=== PATIENT | female | born 1990 | race Caucasian/White ===

== ENCOUNTER 2017-01-04 03:04 | Emergency (ER) | payer OTHER ==
[~2017-01-04] VITALS: Ht 165.1 cm; Wt 59.3 kg
[~2017-01-04 03:04] MED LIST: ACYCLOVIR400 MG PO; AUGMENTIN500 MG PO; Acyclovir PO; CIPRO500 MG PO; Colace PO; DEPO-PROVER150 MG/ML IM; FERROUS SULFAT325 MG PO; FLEXERIL10 MG PO; Feosol PO; HYDROCODON-ACE1 EAC7 PO; INDOCIN25 MG PO; KEFLEX500 MG PO; MACROBID100 MG PO; Macrobid PO; Motrin PO; NAPROSYN500 MG PO; NAPROXEN500 MG PO; NEXIUM40 MG PO; NOHOMEMEDS; NORCO 5/3251 TABLET PO; PERCOCET 5/31 TABLET PO; TAMIFLU75 MG PO; TORADOL10 MG PO; TYLENOL COLD PO; Tamiflu PO; Vicodin,Norco 5/325 PO; ZANTAC150 MG PO; ZOFRAN4 MG PO; Zofran PO; [UNRECOGNIZED DRUG - OTHER] PO; [UNRECOGNIZED DRUG - OTHER] PO
[2017-01-04 04:42] LABS: BASOPHIL COUNT 0.1 K/uL (0-0.1); EOSINOPHIL (%) 1.7 % (0-5); EOSINOPHIL COUNT 0.2 K/uL (0-0.3); HEMATOCRIT 37.9 % (36.0-46.0); IMMATURE GRANULOCYTE (%) 0.4 % (0.0-0.7); INSTRUMENT ABS NEUTROPHIL CT 6.4 K/uL; LYMPHOCYTE COUNT 2.4 K/uL (1.0-2.8); MCH 31.9 PG (29.0-34.0); MCV 93.6 FL (83-99); MEAN PLAT.VOLUME 9.7 uM^3 (9.5-12.4); MONOCYTE (%) 10.1 % (3-12); NEUTROPHIL (%) 63.4 % (45-76); NEUTROPHIL COUNT 6.4 K/uL (1.8-6.4); PLATELET COUNT 227 K/uL (156-360); RBC DIS.WIDTH-CV 11.9 % (11.8-14.6); RBC DIS.WIDTH-SD 41.5 % (39-53); RED BLOOD COUNT 4.05 M/uL (3.80-5.20)
[2017-01-04 04:51] LABS: CHLORIDE 104 mEq/L (99-109); POTASSIUM 3.3 mEq/L (3.7-5.4)
[2017-01-04 04:52] LABS: SODIUM 139 mEq/L (136-147)
[2017-01-04 04:54] LABS: GLUCOSE 86 mg/dL (70-99)
[2017-01-04 04:55] LABS: ANION GAP 9 MEQ/L (2-14)
[2017-01-04 04:56] LABS: TOTAL BILIRUBIN 0.5 mg/dL (0.0-1.0)
[2017-01-04 04:57] LABS: ALKALINE PHOSPHATASE 81 IU/L (3-129); GFR ESTIMATE (CALCULATED) > 59 mL/min/
[2017-01-04 04:59] LABS: UREA NITROGEN (BUN) 7 mg/dL (9-23)
[2017-01-04 05:03] LABS: INTERNAL CONTROL VALID? YES; MONOSPOT (MONONUCLEOSIS SEROL) NEGATIVE (NEGATIVE)
[2017-01-04 05:04] LABS: ADD MIUA? YES; BILIRUBIN NEGATIVE; BLOOD SMALL; COLOR YELLOW ((YELLOW)); GLUCOSE (STRIP) NEGATIVE; KETONES NEGATIVE; LEUKOCYTES LARGE; NITRITE NEGATIVE; PROTEIN (STRIP) 100; SPECIFIC GRAVITY 1.019 (1.000-1.030)
[2017-01-04 05:06] LABS: QUANTITATIVE HCG < 4.0 MIU/ML
[2017-01-04 05:36] LABS: BACTERIA NONE SEEN /HPF; EPITHELIAL CELLS 1+ /HPF; MUCUS TRACE /LPF; RED BLOOD CELLS 20-30 /HPF (0-5); UCUL ADDED? YES; WHITE BLOOD CELLS TNTC /HPF (0-5)
[2017-01-04] MEDS ORDERED: KEFLEX500 MG PO (05:53)
[2017-01-04 06:14] VITALS: BP 99/69
[2017-01-05 12:21] LABS: NEISSERIA GONORRHOEAE POSITIVE
[2017-01-08 11:42] LABS: CHLAMYDIA TRACHOMATIS INVALID
== END 2017-01-04 06:17 | disposition home or self-care (01) ==
LOC: EME 03:04
PROVIDERS: Emergency Medicine
DX: N39.0 Urinary tract infection, site not specified (principal); J02.9 Acute pharyngitis, unspecified; E87.6 Hypokalemia; R51 Headache; H57.10 Ocular pain, unspecified eye; N93.9 Abnormal uterine and vaginal bleeding, unspecified; F17.200 Nicotine dependence, unspecified, uncomplicated
CPT/HCPCS: 80053; 81003; 84702; 85025; 86308; 87077; 87086; 87186; 87491; 87591; 87651 90; 99281; 99283

== ENCOUNTER 2017-01-24 07:14 | Emergency (ER) | payer OTHER ==
[~2017-01-24] VITALS: Ht 165.1 cm; Wt 57.9 kg
[2017-01-24 07:47] LABS: HEMATOCRIT 38.6 % (36.0-46.0); MCH 31.5 PG (29.0-34.0); MCHC 34.5 G/DL (30.0-36.0); MCV 91.5 FL (83-99); MEAN PLAT.VOLUME 9.7 uM^3 (9.5-12.4); PLATELET COUNT 234 K/uL (156-360); RBC DIS.WIDTH-CV 11.7 % (11.8-14.6); RBC DIS.WIDTH-SD 39.3 % (39-53); RED BLOOD COUNT 4.22 M/uL (3.80-5.20)
[2017-01-24 07:55] LABS: CHLORIDE 105 mEq/L (99-109); POTASSIUM 3.2 mEq/L (3.7-5.4); SODIUM 138 mEq/L (136-147)
[2017-01-24 07:57] LABS: GLUCOSE 100 mg/dL (70-99)
[2017-01-24 07:58] LABS: ANION GAP 7 MEQ/L (2-14)
[2017-01-24 08:01] LABS: GFR ESTIMATE (CALCULATED) > 59 mL/min/; UREA NITROGEN (BUN) 5 mg/dL (9-23)
[2017-01-24 08:05] LABS: ADD MIUA? YES; BILIRUBIN NEGATIVE; BLOOD NEGATIVE; COLOR STRAW ((YELLOW)); GLUCOSE (STRIP) NEGATIVE; KETONES NEGATIVE; LEUKOCYTES NEGATIVE; NITRITE NEGATIVE; PROTEIN (STRIP) NEGATIVE; SPECIFIC GRAVITY 1.004 (1.000-1.030); UROBILINOGEN 0.2 MG/DL (0.2-1.0)
[2017-01-24 08:07] LABS: TROP-I INTERPRETATION NEGATIVE; TROPONIN-I < 0.01 ng/mL (0.0-0.30)
[2017-01-24 08:08] LABS: BACTERIA RARE /HPF; EPITHELIAL CELLS 2+ /HPF; MUCUS TRACE /LPF; RED BLOOD CELLS 0-5 /HPF (0-5); WHITE BLOOD CELLS 0-5 /HPF (0-5)
[2017-01-24 08:31] LABS: QUANTITATIVE HCG < 4.0 MIU/ML
[2017-01-24] MEDS ORDERED: ATARAX,VISTARIL50 MG PO (08:31)
[2017-01-24 08:48] VITALS: BP 131/92
== END 2017-01-24 08:50 | disposition home or self-care (01) ==
LOC: EME 07:14
PROVIDERS: Nurse Practitioner Family
DX: F41.9 Anxiety disorder, unspecified (principal); F17.200 Nicotine dependence, unspecified, uncomplicated
CPT/HCPCS: 80048; 81003; 84484; 84702; 85027; 93005; 99281; 99284; Q0177

== ENCOUNTER 2017-02-12 10:12 | Emergency (ER) | payer OTHER ==
[~2017-02-12] VITALS: Ht 165.1 cm; Wt 58.0 kg
[~2017-02-12 10:12] MED LIST changes: +ATARAX,VISTARIL50 MG PO
[2017-02-12 13:02] LABS: HEMATOCRIT 37.6 % (36.0-46.0); MCH 31.8 PG (29.0-34.0); MCV 93.3 FL (83-99); MEAN PLAT.VOLUME 9.7 uM^3 (9.5-12.4); PLATELET COUNT 214 K/uL (156-360); RBC DIS.WIDTH-CV 12.3 % (11.8-14.6); RBC DIS.WIDTH-SD 42.3 % (39-53); RED BLOOD COUNT 4.03 M/uL (3.80-5.20)
[2017-02-12 13:04] LABS: CHLORIDE 106 mEq/L (99-109); POTASSIUM 3.8 mEq/L (3.7-5.4); SODIUM 139 mEq/L (136-147)
[2017-02-12 13:07] LABS: GLUCOSE 78 mg/dL (70-99)
[2017-02-12 13:08] LABS: ANION GAP 7 MEQ/L (2-14); D-DIMER ELISA < 0.15 mg/L FEU (< 0.57)
[2017-02-12 13:09] LABS: TOTAL BILIRUBIN 0.5 mg/dL (0.0-1.0)
[2017-02-12 13:10] LABS: ALKALINE PHOSPHATASE 73 IU/L (3-129); GFR ESTIMATE (CALCULATED) > 59 mL/min/
[2017-02-12 13:11] LABS: UREA NITROGEN (BUN) 8 mg/dL (9-23)
[2017-02-12 13:21] LABS: QUANTITATIVE HCG < 4.0 MIU/ML
[2017-02-12] MEDS ORDERED: KEPPRA500 MG PO (15:25)
[2017-02-12 16:46] VITALS: BP 90/71
== END 2017-02-12 16:47 | disposition home or self-care (01) ==
LOC: EME 10:12
PROVIDERS: Emergency Medicine
DX: G40.909 Epilepsy, unspecified, not intractable, without status epilepticus (principal); F17.200 Nicotine dependence, unspecified, uncomplicated
CPT/HCPCS: 70450; 80053; 84702; 85027; 85379; 93005; 95819; 99281; 99285; J7030

== ENCOUNTER 2017-05-06 15:08 | Emergency (ER) | payer OTHER ==
[~2017-05-06] VITALS: Ht 165.1 cm; Wt 56.1 kg
[~2017-05-06 15:08] MED LIST changes: +KEPPRA500 MG PO
[2017-05-06 16:23] LABS: MCH 31.7 PG (29.0-34.0); MCHC 34.4 G/DL (30.0-36.0); MCV 92.2 FL (83-99); MEAN PLAT.VOLUME 9.8 uM^3 (9.5-12.4); PLATELET COUNT 214 K/uL (156-360); RBC DIS.WIDTH-CV 11.9 % (11.8-14.6); RBC DIS.WIDTH-SD 40.4 % (39-53); RED BLOOD COUNT 4.23 M/uL (3.80-5.20); WHITE BLOOD COUNT 8.5 K/uL (4.1-10.2)
[2017-05-06 16:31] LABS: CHLORIDE 107 mEq/L (99-109); POTASSIUM 3.7 mEq/L (3.7-5.4); SODIUM 136 mEq/L (136-147)
[2017-05-06 16:32] LABS: GLUCOSE 75 mg/dL (70-99)
[2017-05-06 16:34] LABS: ANION GAP 7 MEQ/L (2-14)
[2017-05-06 16:36] LABS: GFR ESTIMATE (CALCULATED) > 59 mL/min/
[2017-05-06 16:37] LABS: UREA NITROGEN (BUN) 9 mg/dL (9-23)
[2017-05-06 16:44] LABS: QUANTITATIVE HCG 67.9 MIU/ML
[2017-05-06 17:00] LABS: ADD MIUA? NO; BILIRUBIN NEGATIVE; BLOOD NEGATIVE; COLOR YELLOW ((YELLOW)); GLUCOSE (STRIP) NEGATIVE; KETONES NEGATIVE; LEUKOCYTES NEGATIVE; NITRITE NEGATIVE; PROTEIN (STRIP) NEGATIVE; SPECIFIC GRAVITY 1.014 (1.000-1.030)
[2017-05-06 19:50] VITALS: BP 106/68
[2017-05-07 13:46] LABS: CHLAMYDIA TRACHOMATIS NEGATIVE; NEISSERIA GONORRHOEAE NEGATIVE
== END 2017-05-06 19:50 | disposition home or self-care (01) ==
LOC: EME 15:08
PROVIDERS: Nurse Practitioner Family
DX: O20.9 Hemorrhage in early pregnancy, unspecified (principal); O36.0910 Maternal care for other rhesus isoimmunization, first trimester, not applicable or unspecified; Z11.3 Encounter for screening for infections with a predominantly sexual mode of transmission; O99.331 Smoking (tobacco) complicating pregnancy, first trimester; F17.200 Nicotine dependence, unspecified, uncomplicated
CPT/HCPCS: 76801; 80048; 81003; 84702; 85027; 86850; 86900; 86901; 87491; 87591; 99281; 99283; J2790

== ENCOUNTER 2017-05-22 22:53 | Emergency (ER) | payer OTHER ==
[~2017-05-22] VITALS: Ht 165.1 cm; Wt 57.7 kg
[2017-05-23 00:13] LABS: HEMATOCRIT 35.4 % (36.0-46.0); MCH 31.9 PG (29.0-34.0); MCHC 34.7 G/DL (30.0-36.0); MCV 91.7 FL (83-99); MEAN PLAT.VOLUME 9.6 uM^3 (9.5-12.4); PLATELET COUNT 208 K/uL (156-360); RBC DIS.WIDTH-CV 11.8 % (11.8-14.6); RBC DIS.WIDTH-SD 39.7 % (39-53); RED BLOOD COUNT 3.86 M/uL (3.80-5.20); WHITE BLOOD COUNT 10.6 K/uL (4.1-10.2)
[2017-05-23 00:25] LABS: CHLORIDE 106 mEq/L (99-109); POTASSIUM 3.5 mEq/L (3.7-5.4); SODIUM 136 mEq/L (136-147)
[2017-05-23 00:27] LABS: GLUCOSE 99 mg/dL (70-99)
[2017-05-23 00:28] LABS: ANION GAP 5 MEQ/L (2-14)
[2017-05-23 00:31] LABS: GFR ESTIMATE (CALCULATED) > 59 mL/min/
[2017-05-23 00:32] LABS: UREA NITROGEN (BUN) 5 mg/dL (9-23)
[2017-05-23 00:59] LABS: QUANTITATIVE HCG 27126.4 MIU/ML
[2017-05-23 01:59] LABS: ADD MIUA? YES; BILIRUBIN NEGATIVE; BLOOD SMALL; COLOR YELLOW ((YELLOW)); GLUCOSE (STRIP) NEGATIVE; KETONES NEGATIVE; LEUKOCYTES TRACE; NITRITE NEGATIVE; PROTEIN (STRIP) NEGATIVE; SPECIFIC GRAVITY 1.023 (1.000-1.030)
[2017-05-23] MEDS ORDERED: KEFLEX500 MG PO (02:09)
[2017-05-23 02:23] VITALS: BP 116/84
[2017-05-23 02:25] LABS: BACTERIA 2+ /HPF; EPITHELIAL CELLS 4+ /HPF; MUCUS RARE /LPF; RED BLOOD CELLS 0-5 /HPF (0-5)
[2017-05-23 02:26] LABS: AMORPHOUS URATES CRYSTALS FEW; CASTS NONE SEEN /LPF; CRYSTALS PRESENT
== END 2017-05-23 02:23 | disposition home or self-care (01) ==
LOC: EME 22:53
PROVIDERS: Emergency Medicine
DX: O23.41 Unspecified infection of urinary tract in pregnancy, first trimester (principal); N39.0 Urinary tract infection, site not specified; O99.331 Smoking (tobacco) complicating pregnancy, first trimester; F17.200 Nicotine dependence, unspecified, uncomplicated; Z3A.01 Less than 8 weeks gestation of pregnancy
CPT/HCPCS: 76801; 80048; 81003; 84702; 85027; 87086; 99281; 99283

== ENCOUNTER 2017-06-19 00:26 | Emergency (ER) | payer OTHER ==
[~2017-06-19] VITALS: Ht 165.1 cm; Wt 58.0 kg
[2017-06-19 01:04] LABS: HEMATOCRIT 36.4 % (36.0-46.0); MCH 31.8 PG (29.0-34.0); MCHC 35.2 G/DL (30.0-36.0); MCV 90.3 FL (83-99); MEAN PLAT.VOLUME 9.5 uM^3 (9.5-12.4); PLATELET COUNT 240 K/uL (156-360); RBC DIS.WIDTH-CV 11.9 % (11.8-14.6); RBC DIS.WIDTH-SD 39.7 % (39-53); RED BLOOD COUNT 4.03 M/uL (3.80-5.20); WHITE BLOOD COUNT 9.1 K/uL (4.1-10.2)
[2017-06-19 01:07] LABS: ADD MIUA? YES; BILIRUBIN NEGATIVE; BLOOD SMALL; COLOR YELLOW ((YELLOW)); GLUCOSE (STRIP) NEGATIVE; KETONES NEGATIVE; LEUKOCYTES TRACE; NITRITE NEGATIVE; PROTEIN (STRIP) NEGATIVE; SPECIFIC GRAVITY 1.015 (1.000-1.030); UROBILINOGEN 0.2 MG/DL (0.2-1.0)
[2017-06-19 01:18] LABS: CHLORIDE 102 mEq/L (99-109); POTASSIUM 3.1 mEq/L (3.7-5.4)
[2017-06-19 01:19] LABS: SODIUM 135 mEq/L (136-147)
[2017-06-19 01:21] LABS: GLUCOSE 84 mg/dL (70-99)
[2017-06-19 01:22] LABS: ANION GAP 10 MEQ/L (2-14)
[2017-06-19 01:23] LABS: TOTAL BILIRUBIN 0.4 mg/dL (0.0-1.0)
[2017-06-19 01:24] LABS: ALKALINE PHOSPHATASE 66 IU/L (3-129); GFR ESTIMATE (CALCULATED) > 59 mL/min/
[2017-06-19 01:26] LABS: UREA NITROGEN (BUN) 5 mg/dL (9-23)
[2017-06-19 01:33] LABS: BACTERIA NONE SEEN /HPF; EPITHELIAL CELLS 4+ /HPF; MUCUS TRACE /LPF; RED BLOOD CELLS 0-5 /HPF (0-5); UCUL ADDED? NO; WHITE BLOOD CELLS 0-5 /HPF (0-5)
[2017-06-19 02:01] LABS: QUANTITATIVE HCG 99493.8 MIU/ML
[2017-06-19 03:11] VITALS: BP 114/76
[2017-06-20 13:57] LABS: CHLAMYDIA TRACHOMATIS NEGATIVE; NEISSERIA GONORRHOEAE NEGATIVE
== END 2017-06-19 03:11 | disposition home or self-care (01) ==
LOC: EXP 00:26 → EME 00:26 → EXP 03:11
DX: O9A.211 Injury, poisoning and certain other consequences of external causes complicating pregnancy, first trimester (principal); S30.1XXA Contusion of abdominal wall, initial encounter; Z3A.10 10 weeks gestation of pregnancy; W10.9XXA Fall (on) (from) unspecified stairs and steps, initial encounter; O99.331 Smoking (tobacco) complicating pregnancy, first trimester; F17.200 Nicotine dependence, unspecified, uncomplicated
CPT/HCPCS: 76801; 80053; 81003; 84702; 85027; 87491; 87591; 99281; 99283

== ENCOUNTER 2017-07-26 20:12 | Emergency (ER) | payer OTHER ==
[~2017-07-26] VITALS: Ht 165.1 cm; Wt 59.8 kg
[2017-07-26 21:04] LABS: HEMATOCRIT 33.9 % (36.0-46.0); MCH 32.1 PG (29.0-34.0); MCHC 35.1 G/DL (30.0-36.0); MCV 91.4 FL (83-99); MEAN PLAT.VOLUME 9.6 uM^3 (9.5-12.4); PLATELET COUNT 197 K/uL (156-360); RBC DIS.WIDTH-CV 12.2 % (11.8-14.6); RBC DIS.WIDTH-SD 41.2 % (39-53); RED BLOOD COUNT 3.71 M/uL (3.80-5.20); WHITE BLOOD COUNT 10.1 K/uL (4.1-10.2)
[2017-07-26 21:15] LABS: CHLORIDE 106 mEq/L (99-109); POTASSIUM 3.1 mEq/L (3.7-5.4); SODIUM 135 mEq/L (136-147)
[2017-07-26 21:16] LABS: GLUCOSE 125 mg/dL (70-99)
[2017-07-26 21:18] LABS: ANION GAP 7 MEQ/L (2-14)
[2017-07-26 21:20] LABS: GFR ESTIMATE (CALCULATED) > 59 mL/min/
[2017-07-26 21:21] LABS: UREA NITROGEN (BUN) 4 mg/dL (9-23)
[2017-07-26 21:25] LABS: INTERNAL CONTROL VALID? YES; MONOSPOT (MONONUCLEOSIS SEROL) NEGATIVE
[2017-07-26 21:38] LABS: INFLUENZA A VIRAL ANTIGEN NEGATIVE; INFLUENZA B VIRAL ANTIGEN NEGATIVE
[2017-07-26 22:40] VITALS: BP 105/64
== END 2017-07-26 22:45 | disposition home or self-care (01) ==
LOC: EME 20:12
PROVIDERS: Nurse Practitioner Family
DX: O98.512 Other viral diseases complicating pregnancy, second trimester (principal); B34.9 Viral infection, unspecified; O99.282 Endocrine, nutritional and metabolic diseases complicating pregnancy, second trimester; E87.6 Hypokalemia; O99.512 Diseases of the respiratory system complicating pregnancy, second trimester; J02.9 Acute pharyngitis, unspecified; R19.7 Diarrhea, unspecified; R05 Cough; O99.332 Smoking (tobacco) complicating pregnancy, second trimester; F17.200 Nicotine dependence, unspecified, uncomplicated; Z3A.15 15 weeks gestation of pregnancy
CPT/HCPCS: 80048; 85027; 86308; 87502; 87651 90; 99281; 99283

== ENCOUNTER 2017-08-15 15:27 | Emergency (ER) | payer OTHER ==
[~2017-08-15] VITALS: Ht 165.1 cm; Wt 63.1 kg
[2017-08-15 15:33] VITALS: BP 116/68
[2017-08-15 16:04] LABS: HEMATOCRIT 31.7 % (36.0-46.0); MCH 32.8 PG (29.0-34.0); MCHC 35.6 G/DL (30.0-36.0); MCV 92.2 FL (83-99); MEAN PLAT.VOLUME 9.7 uM^3 (9.5-12.4); PLATELET COUNT 237 K/uL (156-360); RBC DIS.WIDTH-CV 12.1 % (11.8-14.6); RBC DIS.WIDTH-SD 40.9 % (39-53); RED BLOOD COUNT 3.44 M/uL (3.80-5.20); WHITE BLOOD COUNT 11.1 K/uL (4.1-10.2)
[2017-08-15 16:15] LABS: CHLORIDE 107 mEq/L (99-109); POTASSIUM 3.8 mEq/L (3.7-5.4); SODIUM 135 mEq/L (136-147)
[2017-08-15 16:16] LABS: GLUCOSE 82 mg/dL (70-99)
[2017-08-15 16:18] LABS: ANION GAP 9 MEQ/L (2-14)
[2017-08-15 16:20] LABS: GFR ESTIMATE (CALCULATED) > 59 mL/min/
[2017-08-15 16:21] LABS: UREA NITROGEN (BUN) 7 mg/dL (9-23)
[2017-08-15 16:46] LABS: QUANTITATIVE HCG 21220.2 MIU/ML
== END 2017-08-15 16:28 | disposition left against medical advice (07) ==
LOC: EME 15:27
PROVIDERS: Physician Assistant
DX: O26.892 Other specified pregnancy related conditions, second trimester (principal); R10.9 Unspecified abdominal pain; O99.332 Smoking (tobacco) complicating pregnancy, second trimester; F17.200 Nicotine dependence, unspecified, uncomplicated; Z3A.18 18 weeks gestation of pregnancy; Z53.20 Procedure and treatment not carried out because of patient's decision for unspecified reasons
CPT/HCPCS: 80048; 81003; 84702; 85027; 99281; 99283

== ENCOUNTER → 2017-11-08 | Outpatient (CLI) | payer OTHER ==
[~2017-11-08] VITALS: Ht 167.6 cm; Wt 69.0 kg
[~2017-11-08] MED LIST changes: +FLINTSTONES M100 MCG PO
[2017-11-08 17:45] VITALS: BP 114/56
== END | disposition home or self-care (01) ==
LOC: IVINF 10-26 13:30
DX: Z34.80 Encounter for supervision of other normal pregnancy, unspecified trimester (principal); Z3A.00 Weeks of gestation of pregnancy not specified; Z67.91 Unspecified blood type, Rh negative
CPT/HCPCS: 96372; J2790

== ENCOUNTER 2017-12-24 05:27 | Inpatient (IN) | payer OTHER ==
[~2017-12-24] VITALS: Ht 167.6 cm; Wt 75.9 kg
[2017-12-24] VITALS (8 sets, daily range): BP systolic 96–118; BP diastolic 51–68
[~2017-12-24 05:27] MED LIST changes: +TUMS500 MG PO; +TYLENOL EXTRA500 MG PO
[2017-12-24 05:56] LABS: BASOPHIL (%) 0.4 % (0-1); BASOPHIL COUNT 0.1 K/uL (0-0.1); EOSINOPHIL (%) 1.5 % (0-5); EOSINOPHIL COUNT 0.2 K/uL (0-0.3); HEMATOCRIT 32.2 % (36.0-46.0); HEMOGLOBIN 11.4 G/DL (11.9-15.5); IMMATURE GRANULOCYTE (%) 1.7 % (0.0-0.7); LYMPHOCYTE COUNT 3.1 K/uL (1.0-2.8); MCH 33.4 PG (29.0-34.0); MCHC 35.4 G/DL (30.0-36.0); MCV 94.4 FL (83-99); MONOCYTE (%) 8.9 % (3-12); MONOCYTE COUNT 1.4 K/uL (0-0.8); NEUTROPHIL (%) 67.5 % (45-76); NEUTROPHIL COUNT 10.5 K/uL (1.8-6.4); PLATELET COUNT 245 K/uL (156-360); RBC DIS.WIDTH-CV 12.1 % (11.8-14.6); RBC DIS.WIDTH-SD 42.2 % (39-53); RED BLOOD COUNT 3.41 M/uL (3.80-5.20); WHITE BLOOD COUNT 15.5 K/uL (4.1-10.2)
[2017-12-25 02:24] VITALS: BP 93/50
[2017-12-25 06:55] LABS: BASOPHIL (%) 0.2 % (0-1); BASOPHIL COUNT 0.1 K/uL (0-0.1); EOSINOPHIL (%) 0.5 % (0-5); EOSINOPHIL COUNT 0.1 K/uL (0-0.3); HEMATOCRIT 25.9 % (36.0-46.0); HEMOGLOBIN 8.6 G/DL (11.9-15.5); LYMPHOCYTE (%) 12.8 % (15-42); LYMPHOCYTE COUNT 2.8 K/uL (1.0-2.8); MCH 32.1 PG (29.0-34.0); MCHC 33.2 G/DL (30.0-36.0); MCV 96.6 FL (83-99); MONOCYTE (%) 8.6 % (3-12); MONOCYTE COUNT 1.9 K/uL (0-0.8); NEUTROPHIL (%) 76.9 % (45-76); NEUTROPHIL COUNT 16.8 K/uL (1.8-6.4); PLATELET COUNT 210 K/uL (156-360); RBC DIS.WIDTH-CV 12.2 % (11.8-14.6); RBC DIS.WIDTH-SD 43.3 % (39-53); RED BLOOD COUNT 2.68 M/uL (3.80-5.20); WHITE BLOOD COUNT 21.9 K/uL (4.1-10.2)
[2017-12-25 07:00] VITALS: BP 103/54
[2017-12-25 10:55] VITALS: BP 94/56
[2017-12-25 13:35] VITALS: BP 109/66
[2017-12-25 19:31] VITALS: BP 114/54
[2017-12-25 23:03] VITALS: BP 124/69
[2017-12-26 02:40] VITALS: BP 102/64
[2017-12-26 22:55] VITALS: BP 108/68
[2017-12-27] MEDS ORDERED: IBUPROFEN800 MG PO (09:22)
[2017-12-27] MEDS ORDERED: CHROMAGEN,1 CAPSULE PO (09:22)
[2017-12-27] MEDS ORDERED: ENDOCET 5-3251 EACH PO (09:22)
[2017-12-27 11:19] VITALS: BP 99/56
== END 2017-12-27 14:35 | disposition home or self-care (01) | DRG 765 ==
LOC: 2WEST 05:27 → 2SOUTH 11:46 → 2WEST 12-27 14:35
PROVIDERS: Obstetrics & Gynecology Obstetrics
PROC: 10D00Z1 Extraction of Products of Conception, Low, Open Approach (ICD-10-PCS; principal; 2017-12-24)
DX: O34.219 Maternal care for unspecified type scar from previous cesarean delivery (principal); O75.89 Other specified complications of labor and delivery; O99.02 Anemia complicating childbirth; D62 Acute posthemorrhagic anemia; O26.893 Other specified pregnancy related conditions, third trimester; Z67.41 Type O blood, Rh negative; O99.824 Streptococcus B carrier state complicating childbirth; O98.52 Other viral diseases complicating childbirth; B00.9 Herpesviral infection, unspecified; O99.334 Smoking (tobacco) complicating childbirth; F17.200 Nicotine dependence, unspecified, uncomplicated; Z87.440 Personal history of urinary (tract) infections; Z3A.37 37 weeks gestation of pregnancy; Z37.0 Single live birth
CPT/HCPCS: 83030; 85025; 86850; 86870; 86900; 86901; 86905; 86920; 87641; J0690; J1050; J1200; J1885; J2270; J2274; J2405; J2790; J7120

== ENCOUNTER 2018-01-02 18:32 | Observation (INO) | payer OTHER ==
[~2018-01-02] VITALS: Ht 165.1 cm; Wt 72.0 kg
[~2018-01-02 18:32] MED LIST changes: +CHROMAGEN,1 CAPSULE PO; +ENDOCET 5-3251 EACH PO; +IBUPROFEN800 MG PO
[2018-01-02 20:26] LABS: HEMATOCRIT 39.7 % (36.0-46.0); HEMOGLOBIN 13.4 G/DL (11.9-15.5); MCH 32.4 PG (29.0-34.0); MCHC 33.8 G/DL (30.0-36.0); MCV 96.1 FL (83-99); PLATELET COUNT 350 K/uL (156-360); RBC DIS.WIDTH-CV 12.2 % (11.8-14.6); RBC DIS.WIDTH-SD 42.9 % (39-53); RED BLOOD COUNT 4.13 M/uL (3.80-5.20); WHITE BLOOD COUNT 13.3 K/uL (4.1-10.2)
[2018-01-02 20:37] LABS: ALBUMIN 3.8 g/dL (3.2-4.8); CHLORIDE 106 mEq/L (99-109); POTASSIUM 3.6 mEq/L (3.7-5.4); SODIUM 140 mEq/L (136-147)
[2018-01-02 20:40] LABS: GLUCOSE 105 mg/dL (70-99); TOTAL PROTEIN 7.1 g/dL (6.4-8.3)
[2018-01-02 20:42] LABS: TOTAL BILIRUBIN 0.7 mg/dL (0.0-1.0)
[2018-01-02 20:43] LABS: ALKALINE PHOSPHATASE 152 IU/L (3-129); CREATININE 0.7 mg/dL (0.6-1.3); GFR ESTIMATE (CALCULATED) > 59 mL/min/
[2018-01-02 20:44] LABS: UREA NITROGEN (BUN) 8 mg/dL (9-23)
[2018-01-02 20:45] LABS: AST (GOT) 11 IU/L (2-34)
[2018-01-02 20:46] LABS: ALT (GPT) 19 IU/L (3-49)
[2018-01-02 20:47] LABS: LIPASE 17 U/L (1.0-51.0)
[2018-01-02 20:54] LABS: QUANTITATIVE HCG 68.9 MIU/ML
[2018-01-03 02:02] VITALS: BP 111/65
[2018-01-03 06:59] LABS: BASOPHIL (%) 0.5 % (0-1); BASOPHIL COUNT 0.1 K/uL (0-0.1); EOSINOPHIL (%) 3.3 % (0-5); EOSINOPHIL COUNT 0.4 K/uL (0-0.3); HEMATOCRIT 32.9 % (36.0-46.0); IMMATURE GRANULOCYTE (%) 0.9 % (0.0-0.7); LYMPHOCYTE (%) 20.1 % (15-42); LYMPHOCYTE COUNT 2.4 K/uL (1.0-2.8); MCHC 33.1 G/DL (30.0-36.0); MCV 96.5 FL (83-99); MONOCYTE (%) 8.4 % (3-12); NEUTROPHIL (%) 66.8 % (45-76); NEUTROPHIL COUNT 7.8 K/uL (1.8-6.4); PLATELET COUNT 295 K/uL (156-360); RBC DIS.WIDTH-CV 12.4 % (11.8-14.6); RBC DIS.WIDTH-SD 43.5 % (39-53); RED BLOOD COUNT 3.41 M/uL (3.80-5.20); WHITE BLOOD COUNT 11.7 K/uL (4.1-10.2)
[2018-01-03 07:00] LABS: HEMOGLOBIN 10.9 G/DL (11.9-15.5)
[2018-01-03 07:25] LABS: CHLORIDE 110 MEQ/L (99-109); CREATININE 0.5 MG/DL (0.6-1.3); GFR ESTIMATE (CALCULATED) > 59 mL/min/; GLUCOSE 79 mg/dL (70-99); POTASSIUM 3.7 MEQ/L (3.7-5.4); SODIUM 140 MEQ/L (136-147); UREA NITROGEN (BUN) 9 mg/dL (9-23)
[2018-01-03 07:42] VITALS: BP 103/54
[2018-01-03 11:22] VITALS: BP 104/60
[2018-01-03 15:18] VITALS: BP 110/54
[2018-01-03] MEDS ORDERED: AUGMENTIN875 MG PO (16:12)
[2018-01-03 17:46] LABS: APPEARANCE SL.HAZY ((CLEAR)); BILIRUBIN NEGATIVE; BLOOD LARGE; COLOR YELLOW ((YELLOW)); GLUCOSE (STRIP) NEGATIVE; KETONES NEGATIVE; LEUKOCYTES MODERATE; NITRITE NEGATIVE; PROTEIN (STRIP) NEGATIVE; SPECIFIC GRAVITY 1.004 (1.000-1.030); UROBILINOGEN 0.2 MG/DL (0.2-1.0)
[2018-01-03 17:55] LABS: BACTERIA RARE /HPF; EPITHELIAL CELLS RARE /HPF; MUCUS TRACE /LPF; RED BLOOD CELLS 30-40 /HPF (0-5); WHITE BLOOD CELLS 20-30 /HPF (0-5)
[2018-01-03 20:06] VITALS: BP 111/62
[2018-01-04 00:21] VITALS: BP 104/64
== END 2018-01-04 00:40 | disposition home or self-care (01) ==
LOC: EME 18:32 → EDOF 01-03 00:17 → ENRESERV 01-03 00:21 → 2EAST 01-03 01:53
PROVIDERS: Obstetrics & Gynecology
DX: O86.0 Infection of obstetric surgical wound (principal); K42.9 Umbilical hernia without obstruction or gangrene; G43.909 Migraine, unspecified, not intractable, without status migrainosus; O98.33 Other infections with a predominantly sexual mode of transmission complicating the puerperium; A60.00 Herpesviral infection of urogenital system, unspecified; O99.335 Smoking (tobacco) complicating the puerperium; F17.200 Nicotine dependence, unspecified, uncomplicated; Z87.440 Personal history of urinary (tract) infections; O99.355 Diseases of the nervous system complicating the puerperium; G40.909 Epilepsy, unspecified, not intractable, without status epilepticus; Z82.49 Family history of ischemic heart disease and other diseases of the circulatory system; Z80.3 Family history of malignant neoplasm of breast; Z80.8 Family history of malignant neoplasm of other organs or systems
CPT/HCPCS: 74177; 80048; 80053; 81003; 83605; 83690; 84702; 85025; 85027; 87040; 87086; 99281; 99285; G0378; J0295; J1885; J7030; J7050; J7120

== ENCOUNTER 2018-04-09 23:58 | Emergency (ER) | payer OTHER ==
[~2018-04-09] VITALS: Ht 165.1 cm; Wt 66.2 kg
[~2018-04-09 23:58] MED LIST changes: +AUGMENTIN875 MG PO
[2018-04-10] MEDS ORDERED: CLEOCIN300 MG PO (01:21)
[2018-04-10] MEDS ORDERED: NORCO 5/3251 TABLET PO (01:21)
[2018-04-10 01:49] VITALS: BP 120/78
== END 2018-04-10 01:57 | disposition home or self-care (01) ==
LOC: EME 23:58
PROC: 0H9JXZZ Drainage of Left Upper Leg Skin, External Approach (ICD-10-PCS; principal; 2018-04-09)
DX: L02.416 Cutaneous abscess of left lower limb (principal); Z88.1 Allergy status to other antibiotic agents
CPT/HCPCS: 87070; 87077; 87147; 87205; 99281; 99284

== ENCOUNTER 2018-05-19 22:08 | Emergency (ER) | payer OTHER ==
[~2018-05-19] VITALS: Ht 165.1 cm; Wt 70.0 kg
[~2018-05-19 22:08] MED LIST changes: +CLEOCIN300 MG PO
[2018-05-19 23:21] LABS: HEMATOCRIT 34.8 % (36.0-46.0); HEMOGLOBIN 12.2 G/DL (11.9-15.5); MCH 31.5 PG (29.0-34.0); MCHC 35.1 G/DL (30.0-36.0); MCV 89.9 FL (83-99); PLATELET COUNT 248 K/uL (156-360); RBC DIS.WIDTH-CV 12.6 % (11.8-14.6); RBC DIS.WIDTH-SD 41.5 % (39-53); RED BLOOD COUNT 3.87 M/uL (3.80-5.20)
[2018-05-19 23:50] LABS: QUANTITATIVE HCG < 4.0 MIU/ML
[2018-05-20 00:03] LABS: APPEARANCE CLEAR ((CLEAR)); BILIRUBIN NEGATIVE; BLOOD SMALL; COLOR STRAW ((YELLOW)); GLUCOSE (STRIP) NEGATIVE; KETONES NEGATIVE; LEUKOCYTES NEGATIVE; NITRITE NEGATIVE; PROTEIN (STRIP) NEGATIVE; SPECIFIC GRAVITY 1.004 (1.000-1.030); UROBILINOGEN 0.2 MG/DL (0.2-1.0)
[2018-05-20 01:42] LABS: CHLORIDE 106 mEq/L (99-109); POTASSIUM 4.4 mEq/L (3.7-5.4); SODIUM 140 mEq/L (136-147)
[2018-05-20 01:44] LABS: GLUCOSE 82 mg/dL (70-99)
[2018-05-20 01:47] LABS: CREATININE 0.8 mg/dL (0.6-1.3); GFR ESTIMATE (CALCULATED) > 59 mL/min/
[2018-05-20 01:48] LABS: UREA NITROGEN (BUN) 11 mg/dL (9-23)
[2018-05-20 02:39] VITALS: BP 99/57
[2018-05-20 07:54] LABS: THYROTROPIN (TSH) 0.79 MIU/L (0.4-5.5)
== END 2018-05-20 02:41 | disposition home or self-care (01) ==
LOC: EME 22:08 → EXP 22:08
DX: N93.8 Other specified abnormal uterine and vaginal bleeding (principal); R42 Dizziness and giddiness; Z32.02 Encounter for pregnancy test, result negative; F17.200 Nicotine dependence, unspecified, uncomplicated
CPT/HCPCS: 80048; 81003; 84443; 84702; 85027; 99281; 99284